=== PATIENT | female | born 1960 ===

== ENCOUNTER 2021-07-18 17:43 | Emergency (ER) | payer OTHER ==
[~2021-07-18] VITALS: Ht 157.5 cm; Wt 60.8 kg
[~2021-07-18 17:43] MED LIST: COZAAR25 MG; KETO10TA2 PO; MEDROL DOSE PACK; TRAMADOL HCL-AP1 TAB PO
[2021-07-18] MEDS ORDERED: TOPROL XL25 M1 (18:11)
[2021-07-19] MEDS ORDERED: CIPRO500 MG PO (00:12)
[2021-07-19] MEDS ORDERED: METRONIDAZOLE500 MG PO (00:12)
[2021-07-19] MEDS ORDERED: LEVSIN0.125 MG PO (00:13)
[2021-07-19] MEDS ORDERED: PEPCID AC20 MG PO (00:13)
== END 2021-07-19 00:38 | disposition home or self-care (01) ==
LOC: ER 17:43
DX: K52.9 Noninfective gastroenteritis and colitis, unspecified (principal); N20.0 Calculus of kidney; K57.90 Diverticulosis of intestine, part unspecified, without perforation or abscess without bleeding